=== PATIENT | male | born 1940 | race Caucasian/White ===

== ENCOUNTER 2021-10-27 15:28 | Inpatient (IN) | payer MEDICARE, BC ==
[~2021-10-27] VITALS: Ht 167.6 cm; Wt 65.4 kg
[~2021-10-27 15:28] MED LIST: INFLUENZA VACCINE 05/PF 0.5 ML SYRINGE IM ONE; PNEUMOCOCCAL 23-VAL P-SAC VAC 0.5 ML IM ONE
[2021-10-27 17:16] LABS: BASOPHILS % 0.3 % (0.0-2.0); EOSINOPHILS % 3.1 % (0.0-5.0); HEMATOCRIT. 38.7 % (42.0-52.0); HEMOGLOBIN. 12.9 g/dL (14.0-18.0); LYMPHOCYTES % 23.7 % (20.0-50.0); MEAN CORPUSCULAR HEMOGLOBIN 32.8 pg (28.0-32.0); MEAN CORPUSCULAR VOLUME 98.4 fL (80.0-94.0); MEAN PLATELET VOLUME 7.8 fl (7.4-10.4); MONOCYTES % 9.8 % (2.0-8.0); NEUTROPHILS % 63.1 % (40.0-76.0); PLATELET 207 x1000/uL (130-400); RED BLOOD CELL COUNT 3.93 mill/uL (4.7-6.1); RED CELL DISTRIBUTION WIDTH 13.9 % (11.6-14.6)
[2021-10-27 17:20] LABS: CHLORIDE 104 mEq/L (98-107)
[2021-10-27 17:33] LABS: T4 FREE 1.09 ng/dL (0.76-1.46)
[2021-10-27 17:45] LABS: CLARITY URINE CLEAR (CLEAR); COLOR URINE YELLOW (YELLOW); KETONES URINE NEGATIVE (NEGATIVE); LEUKOCYTE ESTERASE URINE NEGATIVE (NEGATIVE); NITRITE URINE NEGATIVE (NEGATIVE); OCCULT BLOOD URINE NEGATIVE (NEGATIVE); PH URINE 6.5 (4.5-8.0); PROTEIN URINE TRACE (NEGATIVE); SPECIFIC GRAVITY URINE 1.015 (1.005-1.030); UROBILINOGEN URINE 0.2 E.U./dL (0.2-1.0)
[2021-10-27] MEDS ORDERED: ASPIRIN 325MG EC TABLET PO ONE (18:15)
[2021-10-27] MEDS ORDERED: MAGNESIUM 2 G PREMIX 50 ML IV ONE (18:45)
[2021-10-27] MEDS ORDERED: ONDANSETRON HCL 4MG/2ML INJ IV PRN (21:15)
[2021-10-27 22:00] VITALS: BP 138/78
[2021-10-27 22:55] VITALS: BP 140/87
[2021-10-27] MEDS ORDERED: MAGN400T26 PO (23:14)
[2021-10-27] MEDS ORDERED: METO-396 PO (23:14)
[2021-10-27] MEDS ORDERED: FINA5TAB11 PO (23:14)
[2021-10-27] MEDS ORDERED: SILO8CAP6 PO (23:14)
[2021-10-27] MEDS ORDERED: DILT360C37 PO (23:14)
[2021-10-27] MEDS ORDERED: aspirin (23:14)
[2021-10-27] MEDS ORDERED: ATOR20TA65 PO (23:14)
[2021-10-28] VITALS: BP 148/82
[2021-10-28 00:19] LABS: CREATINE KINASE MB FRACTION 5.6 ng/mL (0.5-3.6)
[2021-10-28 02:00] VITALS: BP 140/85
[2021-10-28 04:00] VITALS: BP 144/90
[2021-10-28 06:48] LABS: BASOPHILS % 0.8 % (0.0-2.0); EOSINOPHILS % 5.8 % (0.0-5.0); HEMATOCRIT. 39.9 % (42.0-52.0); HEMOGLOBIN. 13.4 g/dL (14.0-18.0); LYMPHOCYTES % 42.7 % (20.0-50.0); MEAN CORPUSCULAR HEMOGLOBIN 32.8 pg (28.0-32.0); MEAN CORPUSCULAR VOLUME 97.6 fL (80.0-94.0); MEAN PLATELET VOLUME 7.9 fl (7.4-10.4); NEUTROPHILS % 40.7 % (40.0-76.0); PLATELET 211 x1000/uL (130-400); RED BLOOD CELL COUNT 4.09 mill/uL (4.7-6.1); RED CELL DISTRIBUTION WIDTH 13.5 % (11.6-14.6)
[2021-10-28 07:06] LABS: CHLORIDE 106 mEq/L (98-107)
[2021-10-28 07:15] LABS: LDL CHOLESTEROL 53 mg/dL (5-100)
[2021-10-28 07:16] LABS: CREATINE KINASE 193 IU/L (39-308); HDL CHOLESTEROL 63 mg/dL (40-59)
[2021-10-28 07:20] LABS: CREATINE KINASE MB FRACTION 7.7 ng/mL (0.5-3.6)
[2021-10-28 08:00] VITALS: BP 132/66
[2021-10-28] MEDS ORDERED: PNEUMOCOCCAL 23-VAL P-SAC VAC 0.5 ML IM ONE (08:00)
[2021-10-28] MEDS ORDERED: ENOXAPARIN 40MG/0.4ML SYR SUBCUT SCH (09:00)
[2021-10-28 10:00] VITALS: BP 127/77
[2021-10-28] MEDS ORDERED: INFLUENZA VACCINE 05/PF 0.5 ML SYRINGE IM ONE (10:00)
[2021-10-28] MEDS ORDERED: METOPROLOL TARTRATE 25MG TABLET PO SCH (10:00)
[2021-10-28] MEDS ORDERED: DILTIAZEM HCL PO SCH (13:15)
[2021-10-28] MEDS ORDERED: MAGNESIUM OXIDE 400MG TABLET PO SCH (13:15)
[2021-10-28] MEDS ORDERED: FINASTERIDE 5MG TABLET PO SCH (13:30)
[2021-10-28] MEDS ORDERED: MEDICATION NOT ON FORMULARY EA (Metoprolol Succinate 1 TAB) PO SCH (17:00)
[2021-10-28] MEDS ORDERED: ATORVASTATIN CALCIUM 40MG TABLET PO SCH (21:00)
[2021-10-28] MEDS ORDERED: ATORVASTATIN CALCIUM 20MG TABLET PO SCH (21:00)
[2021-10-29] MEDS ORDERED: ASPIRIN 81MG TABLET PO SCH (09:00)
== END 2021-10-28 13:55 | disposition left against medical advice (07) | DRG 281 ==
LOC: ER 15:28 → EDBEDREQ 18:51 → EDBEDREQSVC 18:56 → ENRESERV 21:31 → 3WST 21:56
PROVIDERS: ADMIT Family Medicine; ATTEND Family Medicine
DX: I47.1 Supraventricular tachycardia (principal); I21.4 Non-ST elevation (NSTEMI) myocardial infarction; N17.9 Acute kidney failure, unspecified; I10 Essential (primary) hypertension; E78.00 Pure hypercholesterolemia, unspecified; Z53.29 Procedure and treatment not carried out because of patient's decision for other reasons; E78.5 Hyperlipidemia, unspecified; N40.0 Benign prostatic hyperplasia without lower urinary tract symptoms; Z86.73 Personal history of transient ischemic attack (TIA), and cerebral infarction without residual deficits
CPT/HCPCS: 36415; 71045; 80053; 80061; 81003; 82550; 82553; 83735; 83880; 84439; 84443; 84484; 85025; 90686; 90732; 93005; 93306; 99285; J1650; J3475